=== PATIENT | female | born 1980 | race Caucasian/White ===

== ENCOUNTER 2016-10-22 16:11 | Emergency (ER) | payer MEDICAID ==
[~2016-10-22] VITALS: Wt 80.0 kg
[2016-10-22 19:00] LABS: ADD UMIC YES; URINE BILIRUBIN (Dip) NEGATIVE (NEGATIVE); URINE BLOOD (Dip) 3+ (NEGATIVE); URINE COLOR LT. YELLOW (YELLOW); URINE GLUCOSE (Dip) NEGATIVE (NEGATIVE); URINE KETONES (Dip) NEGATIVE (NEGATIVE); URINE LEUKOCYTE ESTERASE (Dip) NEGATIVE (NEGATIVE); URINE NITRITE (Dip) NEGATIVE (NEGATIVE); URINE TOTAL PROTEIN (Dip) NEGATIVE (NEGATIVE); URINE UROBILINOGEN (Dip) 0.2 E.U./dL (0.1-1.0)
--- NOTE | 2016-10-22 19:03 | ERD ---
ER Documentation Chief Complaint Date/Time DATE: 10/22/16 TIME: 18:59 Chief Complaint VAG BLEED SINCE TODAY. NO FEVERS. ,MILD AP . NO DYSURIA HPI Patient is a 35-year-old female, approximately 9 weeks , G2, P1, who presents to the emergency department with vaginal bleeding. Patient states that the bleeding started approximately 1 PM today. Patient states that the bleeding was dark red in color. The bleeding has now resolved. Patient denies any pad use. Patient also complaining of left lower quadrant pain and suprapubic pain. She denies any excessive vaginal discharge or pain with urination. She does admit to urinary frequency. Patient denies any fever, chills, vomiting, chest pain or shortness breath, diarrhea, dizziness or loss consciousness. Patient does feel nauseous occasionally. No sick contacts. No recent travel. Patient is taking vitamins. ROS All systems reviewed and are negative except as per history of present illness. Allergies Allergies: Coded Allergies: No Known Allergy (Unverified , 10/22/16) PMhx/Soc Medical and Surgical Hx: pt denies Medical Hx, pt denies Surgical Hx History of Surgery: No Anesthesia Reaction: No Hx Neurological Disorder: No Hx Respiratory Disorders: No Hx Cardiac Disorders: No Hx Psychiatric Problems: No Hx Miscellaneous Medical Probl: No Hx Alcohol Use: No Hx Substance Use: No Hx Tobacco Use: No FmHx Family History: No diabetes Physical Exam Vitals Vital Signs Date Time Temp Pulse Resp B/P Pulse Ox O2 Delivery O2 Flow Rate FiO2 10/22/16 21:12 98.7 72 18 110/58 100 Room Air 10/22/16 16:22 98.9 92 21 118/54 98 Physical Exam GENERAL: Well-developed, well-nourished female. Appears in no acute distress. HEAD: Normocephalic, atraumatic. EYES: Pupils are equally reactive bilaterally. EOMs grossly intact. No conjunctival erythema. ENT: Moist mucous membranes. No uvula deviation. No kissing tonsils. NECK: Supple. No meningismus. LUNG: Clear to auscultation bilaterally. No rhonchi, wheezing, rales or coarse breath sounds. HEART: Regular rate and rhythm. No murmurs, rubs or gallops. ABDOMEN: No scars, ecchymosis or rashes noted. Soft and nondistended. Tender to palpation in the suprapubic region. Positive bowel sounds in all four quadrants. No rebound tenderness, no guarding. (-) McBurneys point tenderness. No CVA tenderness. EXTREMITIES: Equal pulses bilaterally. No peripheral clubbing, cyanosis or edema. No unilateral leg swelling. NEUROLOGIC: Alert and oriented. Moving all four extremities without any difficulty. Normal speech. Steady gait. SKIN: Normal color. Warm and dry. No rashes or lesions. Result Diagram: 10/22/161908 Results 24 hrs Laboratory Tests Test 10/22/16 18:39 10/22/16 19:09 Urine Bacteria FEW Urine Bilirubin NEGATIVE Urine Clarity CLEAR Urine Color LT. YELLOW Urine Epithelial Cells FEW Urine Glucose NEGATIVE% Urine Hemoglobin 3+ Urine Ketones NEGATIVE Urine Leukocyte Esterase NEGATIVE Urine Microscopic RBC 5-10/HPF Urine Microscopic WBC 0-2/HPF Urine Nitrite NEGATIVE Urine Specific [place] >=1.030 Urine Total Protein NEGATIVE Urine Urobilinogen 0.2 E.U./dL Urine Yeast FEW Urine pH 5.5 Basophils # 0.010^3/ul Basophils % 0.5% Beta HCG, Quantitative 9375.9mIU/ml Blood Morphology Comment Eosinophils # 0.210^3/ul Eosinophils % 2.3% Hematocrit 37.2% Hemoglobin 12.4g/dl Lymphocytes # 2.810^3/ul Lymphocytes % 34.7% Mean Corpuscular Hemoglobin 26.9pg Mean Corpuscular Hemoglobin Concent 33.3g/dl Mean Corpuscular Volume 80.8fl Mean Platelet Volume 8.3fl Monocytes # 0.410^3/ul Monocytes % 5.2% Neutrophils # 4.610^3/ul Neutrophils % 57.3% Nucleated Red Blood Cells # 0.010^3/ul Nucleated Red Blood Cells % 0.0/100WBC Platelet Count 48932^3/UL Red Blood Count 4.6110^6/ul Red Cell Distribution Width 14.0% White Blood Count 8.010^3/ul Procedures/MDM ED COURSE: The patient was stable throughout ED course. I kept the patient and/or family informed of laboratory and diagnostic imaging results throughout the ED course. DIAGNOSTIC IMAGING: Read by radiologist. DIAGNOSTIC IMAGING REPORT Patient: RISSA DELEON : 1980 Age: 35 Sex: F MR #: [id number] DOS: 10/22/16 1847 Ordering MD: MASON AZEVEDO PA-C Location: [facility] Room/Bed: PROCEDURE: US OB. CLINICAL INDICATION: Vaginal bleeding TECHNIQUE: Transabdominal and transvaginal views of the pelvis are available for review. COMPARISON: No prior studies are available for comparison. FINDINGS: [place]-rump length: 0.3 cm The mean gestational sac diameter is 1.4 cm. heart rate: None Ultrasound estimated gestational age: 6 weeks and 1 day The uterus measures 7.5 x 4.6 x 6.6 cm in size. The left ovary measures 3.5 x 1.8 x 1.9 cm in size. A left ovarian cystic structure is seen measuring 2.2 cm in maximal diameter is seen. The right ovary is not visualized. No other ovarian or adnexal mass lesion is seen. There is no free fluid in the pelvis. A trace amount of free fluid in the endocervical canal seen. IMPRESSION: Single intrauterine without evidence of heart rate, the findings of which are consistent with demise. Correlation with serial beta HCG levels is suggested as well as a short interval follow-up. RPTAT: HPNM Physician Karrie Date Time Electronically viewed and signed by Physician Karrie on 10/22/2016 20 :16 / CC: MASON AZEVEDO PA-C PROCEDURES: None. MEDICAL DECISION MAKING: This is a 35-year-old female who presents to the emergency department with vaginal bleeding earlier today which has now resolved. Vital signs were reviewed. Patient was afebrile. Patient was hemodynamically stable. Quantitative b-HCG was 9375.9. Patient was O positive. Rhogam was not given. CBC showed no evidence of systemic infection or severe anemia. Urine was negative for acute infection. Pelvic US showed single intrauterine without evidence of heart rate, the findings of which are consistent with demise. Correlation with serial beta HCG levels is suggested as well as a short interval follow-up. Given these findings, the patients presentation is most consistent with demise. Patient will likely have a spontaneous or she will need a D & C. I have a much lower clinical concern for ectopic , ruptured ectopic , molar , subchorionic hematoma, placental abruption, anembyronic . DISCHARGE: At this time, patient is stable for discharge and outpatient management. I had a conversation at length with the patient about the concerns of vaginal bleeding during the 1st trimester of . At this time, patient's ultrasound findings are most consistent with demise. Patient will most likely have spontaneous . She was advised that she may need to have a D& C. I have instructed the patient to follow-up with her OBGYN or return here to the ED for further monitoring. I have instructed the patient to promptly return to the ER at any time for any new or worsening symptoms including increased pain, nausea, vomiting, continued bleeding, weakness, syncope or fever. The patient and/or family expressed understanding of and agreement with this plan. All questions were answered. Home care instructions were provided. Departure Diagnosis: Primary Impression: demise Additional Impression: Vaginal bleeding in patient at less than 20 weeks gestation Condition: Stable Patient Instructions: Bleeding During Early Referrals: [facility] YOU HAVE RECEIVED A MEDICAL SCREENING EXAM AND THE RESULTS INDICATE THAT YOU DO NOT HAVE A CONDITION THAT REQUIRES URGENT TREATMENT IN THE EMERGENCY DEPARTMENT. FURTHER EVALUATION AND TREATMENT OF YOUR CONDITION CAN WAIT UNTIL YOU ARE SEEN IN YOUR DOCTORS OFFICE WITHIN THE NEXT 1-2 DAYS. IT IS YOUR RESPONSIBILITY TO MAKE AN APPOINTMENT FOR FOLOW-UP CARE. IF YOU HAVE A PRIMARY DOCTOR --you should call your primary doctor and schedule an appointment IF YOU DO NOT HAVE A PRIMARY DOCTOR YOU CAN CALL OUR PHYSICIAN REFERRAL HOTLINE AT IF YOU CAN NOT AFFORD TO SEE A PHYSICIAN YOU CAN CHOSE FROM THE FOLLOWING [facility] [address] [facility] [address] [facility] [facility] [address] [facility] [address] [facility] [address] [facility] [facility]. [facility]. [address] [facility]. [facility] YOU HAVE RECEIVED A MEDICAL SCREENING EXAM AND THE RESULTS INDICATE THAT YOU DO NOT HAVE A CONDITION THAT REQUIRES URGENT TREATMENT IN THE EMERGENCY DEPARTMENT. FURTHER EVALUATION AND TREATMENT OF YOUR CONDITION CAN WAIT UNTIL YOU ARE SEEN IN YOUR DOCTORS OFFICE WITHIN THE NEXT 1-2 DAYS. IT IS YOUR RESPONSIBILITY TO MAKE AN APPOINTMENT FOR FOLOW-UP CARE. IF YOU HAVE A PRIMARY DOCTOR --you should call your primary doctor and schedule and appointment IF YOU DO NOT HAVE A PRIMARY DOCTOR YOU CAN CALL OUR PHYSICIAN REFERRAL HOTLINE AT . IF YOU CAN NOT AFFORD TO SEE A PHYSICIAN YOU CAN CHOSE FROM THE FOLLOWING [facility], [facility]: [facility] [address] [place] [address] [facility] [address] [place] [address] [facility] [address] [place] [address] [employer] [place] [address] [facility] [address] [place] [address] OFFICE FAX , [facility] [address] [place], [place] [id number] [facility] [address] [place] [address] ORIN [address] [address] [facility], [address], [facility] [address] [address] [place] [address] [facility] [address] [place] [address] [facility] [address] - [address], [facility] [address] [facility] [address], [place] [address] [address], [address] [address] [place] [address] Additional Instructions: Llame al doctor MAANA y vern shaista EVITA PARA DENTRO DE 1-2 MONIQUE.Dgale a la secretaria que nosotros le instruimos hacer esta evita.Avise o llame si shell condicin se empeora antes de la evita. Regresa aqui si peor o no mejor. Necesita recheck en dos monique para ultrasound y B-HCG. MASON AZEVEDO PA-C Oct 22, 2016 19:03 MASON AZEVEDO PA-C Oct 22, 2016 19:03
[2016-10-22 19:20] LABS: BASOPHILS % 0.5 % (0.0-2.0); EOSINOPHILS # 0.2 10^3/ul (0.0-0.5); EOSINOPHILS % 2.3 % (0.0-7.0); HEMATOCRIT 37.2 % (37.0-47.0); HEMOGLOBIN 12.4 g/dl (12.0-16.0); LYMPHOCYTES # 2.8 10^3/ul (0.8-2.9); LYMPHOCYTES % 34.7 % (15.0-51.0); MEAN CORPUSCULAR HEMOGLOBIN 26.9 pg (29.0-33.0); MEAN CORPUSCULAR HGB CONC 33.3 g/dl (32.0-37.0); MEAN CORPUSCULAR VOLUME 80.8 fl (82.0-101.0); MEAN PLATELET VOLUME 8.3 fl (7.4-10.4); MONOCYTE # 0.4 10^3/ul (0.3-0.9); MONOCYTES % 5.2 % (0.0-11.0); NEUTROPHIL # 4.6 10^3/ul (1.6-7.5); NEUTROPHILS % 57.3 % (39.0-77.0); PLATELET COUNT 300 10^3/UL (140-440); RED BLOOD COUNT 4.61 10^6/ul (4.20-5.40)
[2016-10-22 19:22] LABS: CONDITION 1; LH ANALYZER COMMENTS 1
[2016-10-22 19:25] LABS: BACTERIA,URINE FEW
--- NOTE | 2016-10-22 20:17 | RADRPT ---
PROCEDURE: US OB. CLINICAL INDICATION: Vaginal bleeding TECHNIQUE: Transabdominal and transvaginal views of the pelvis are available for review. COMPARISON: No prior studies are available for comparison. FINDINGS: [place]-rump length:0.3 cm The mean gestational sac diameter is 1.4 cm. heart rate:None Ultrasound estimated gestational age:6 weeks and 1 day The uterus measures 7.5 x 4.6 x 6.6 cm in size. The left ovary measures 3.5 x 1.8 x 1.9 cm in size. A left ovarian cystic structure is seen measuring 2.2 cm in maximal diameter is seen. The right o vary is not visualized. No other ovarian or adnexal mass lesion is seen. There is no free fluid in the pelvis. A trace amou nt of free fluid in the endocervical canal seen. IMPRESSION: Single intrauterine without evidence of heart rate, the findings of which are consis tent with demise. Correlation with serial beta HCG levels is suggested as well as a short int erval follow-up. RPTAT: HPNM Physician Karrie Date Time Electronically viewed and signed by Physician Karrei on 10/22/2016 20:16 /
[2016-10-22 21:12] VITALS: BP 110/58; PULSE 72; RESP 18; TEMP 98.7
== END 2016-10-22 21:12 | disposition home or self-care (01) ==
LOC: FTE 16:11
DX: O02.1 Missed abortion (principal)
CPT/HCPCS: 36415; 76801; 76817; 81001; 81003; 84702; 85025; 86900; 86901

== ENCOUNTER 2016-10-26 10:47 | Inpatient (IN) | payer MEDICAID ==
[~2016-10-26] VITALS: Wt 75.0 kg
[2016-10-26] VITALS (7 sets, daily range): BP systolic 96–108; BP diastolic 54–62; PULSE 70–86; RESP 16–23; TEMP 98.3
[2016-10-26] MEDS ORDERED: HYDROCODONE/APAP (5/325) TAB PO STA (12:58)
[2016-10-26 13:20] LABS: ADD SCAN DIFF NO
[2016-10-26 13:22] LABS: BASOPHILS % 0.4 % (0.0-2.0); EOSINOPHILS # 0.2 10^3/ul (0.0-0.5); EOSINOPHILS % 2.1 % (0.0-7.0); HEMATOCRIT 38.8 % (37.0-47.0); HEMOGLOBIN 12.7 g/dl (12.0-16.0); LYMPHOCYTES # 2.4 10^3/ul (0.8-2.9); LYMPHOCYTES % 26.2 % (15.0-51.0); MEAN CORPUSCULAR HEMOGLOBIN 26.7 pg (29.0-33.0); MEAN CORPUSCULAR HGB CONC 32.7 g/dl (32.0-37.0); MEAN CORPUSCULAR VOLUME 81.7 fl (82.0-101.0); MEAN PLATELET VOLUME 9.6 fl (7.4-10.4); MONOCYTE # 0.6 10^3/ul (0.3-0.9); MONOCYTES % 6.5 % (0.0-11.0); NEUTROPHIL # 5.9 10^3/ul (1.6-7.5); NEUTROPHILS % 64.6 % (39.0-77.0); PLATELET COUNT 335 10^3/UL (140-415); RED BLOOD COUNT 4.75 10^6/ul (4.20-5.40); RED CELL DISTRIBUTION WIDTH 13.6 % (11.5-14.5); WHITE BLOOD COUNT 9.1 10^3/ul (4.8-10.8)
[2016-10-26 13:51] LABS: ADD UMIC YES; URINE BILIRUBIN (Dip) NEGATIVE (NEGATIVE); URINE BLOOD (Dip) 3+ (NEGATIVE); URINE COLOR LT. RED (YELLOW); URINE GLUCOSE (Dip) NEGATIVE (NEGATIVE); URINE KETONES (Dip) NEGATIVE (NEGATIVE); URINE LEUKOCYTE ESTERASE (Dip) 1+ (NEGATIVE); URINE NITRITE (Dip) NEGATIVE (NEGATIVE); URINE TOTAL PROTEIN (Dip) 1+ (NEGATIVE); URINE UROBILINOGEN (Dip) 0.2 E.U./dL (0.1-1.0)
--- NOTE | 2016-10-26 13:52 | ERD ---
ER Documentation Chief Complaint Date/Time DATE: 10/26/16 TIME: 13:48 Chief Complaint PELVIC PAIN AND MISCARRIAGE HPI This is a female who presents to the emergency department today for continued pelvic pain and vaginal bleeding. Patient was seen here on October 22 for vaginal bleeding and . Patient states that she saw her primary care doctor and is set up for a D&C on for very 2016 however she was told to just come here to the emergency department if she still had pain and we would do a D&C here. States she is taking Motrin with limited improvement in pain. Denies any fevers or chills, dysuria. ROS All systems reviewed and are negative except as per history of present illness. Allergies Allergies: Coded Allergies: No Known Allergy (Unverified , 10/22/16) PMhx/Soc Medical and Surgical Hx: pt denies Medical Hx History of Surgery: Yes () Anesthesia Reaction: No Hx Neurological Disorder: No Hx Respiratory Disorders: No Hx Cardiac Disorders: No Hx Psychiatric Problems: No Hx Miscellaneous Medical Probl: No Hx Alcohol Use: No Hx Substance Use: No Hx Tobacco Use: No Smoking Status: Never smoker Physical Exam Vitals Vital Signs Date Time Temp Pulse Resp B/P Pulse Ox O2 Delivery O2 Flow Rate FiO2 10/26/16 10:50 98.0 100 18 119/61 99 Physical Exam Const: No acute distress Head: Atraumatic Eyes: Normal Conjunctiva ENT: Normal External Ears, Nose and Mouth. Neck: Full range of motion..~ No meningismus. Resp: Clear to auscultation bilaterally Cardio: Regular rate and rhythm, no murmurs Abd: Soft, suprapubic tenderness non distended. Normal bowel sounds no right lower quadrant pain. No left lower quadrant pain. Skin: No petechiae or rashes Back: No midline or flank tenderness Ext: No cyanosis, or edema Neur: Awake and alert Psych: Normal Mood and Affect Result Diagram: 10/26/16 1315 Results 24 hrs Laboratory Tests Test 10/26/16 13:15 10/26/16 13:21 Basophils # 0.010^3/ul Basophils % 0.4% Beta HCG, Quantitative 6801.0mIU/ml Eosinophils # 0.210^3/ul Eosinophils % 2.1% Hematocrit 38.8% Hemoglobin 12.7g/dl Lymphocytes # 2.410^3/ul Lymphocytes % 26.2% Mean Corpuscular Hemoglobin 26.7pg Mean Corpuscular Hemoglobin Concent 32.7g/dl Mean Corpuscular Volume 81.7fl Mean Platelet Volume 9.6fl Monocytes # 0.610^3/ul Monocytes % 6.5% Neutrophils # 5.910^3/ul Neutrophils % 64.6% Nucleated Red Blood Cells # 0.010^3/ul Nucleated Red Blood Cells % 0.0/100WBC Platelet Count 45569^3/UL Red Blood Count 4.7510^6/ul Red Cell Distribution Width 13.6% White Blood Count 9.110^3/ul Urine Bacteria OCCASIONAL Urine Bilirubin NEGATIVE Urine Clarity SLIGHTLY CLOUDY Urine Color LT. RED Urine Epithelial Cells FEW Urine Glucose NEGATIVE% Urine Hemoglobin 3+ Urine Ketones NEGATIVE Urine Leukocyte Esterase 1+ Urine Microscopic RBC >200/HPF Urine Microscopic WBC 2-5/HPF Urine Nitrite NEGATIVE Urine Specific [place] 1.010 Urine Total Protein 1+ Urine Urobilinogen 0.2 E.U./dL Urine pH 6.5 Current Medications Medications (Trade) Dose Ordered Sig/Pato Route PRN Reason Start Time Stop Time Status Last Admin Dose Admin Acetaminophen/ Hydrocodone Bitart ([place] (5/325)) 1 tab ONCE STAT PO 10/26/16 12:58 10/26/16 12:59 DC 10/26/16 13:20 Ondansetron HCl (Zofran Inj) 4 mg BRIDGE ORDER PRN IV NAUSEA AND/OR VOMITING 10/26/16 15:00 10/27/16 14:59 Acetaminophen (Tylenol Tab) 650 mg ER BRIDGE PRN PO MILD PAIN/FEVER 10/26/16 15:00 10/27/16 14:59 DIAGNOSTIC IMAGING REPORT Patient: RISSA DELEON : 1980 Age: 35 Sex: F MR #: [id number] DOS: 10/26/16 1258 Ordering MD: RORY STRICKLAND PA-C Location: [facility] Room/Bed: PROCEDURE: US OB. CLINICAL INDICATION: Vaginal bleeding. female. TECHNIQUE: Transabdominal and transvaginal views of the pelvis are available for review. COMPARISON: Pelvic sonogram 10/22/2016. FINDINGS: The uterus measures 7.8 cm sagittal by 5 cm AP by 6.1 cm transverse. There is a fluid collection measuring 1.7 x 0.8 x 1 cm in size which is slightly elliptical in shape and may represent a gestational sac for a blighted ovum. No definite pole is identified. Some fluid is present in the cervical canal and cul-de-sac. The left left ovary as normal blood flow and Doppler imaging measuring 2.5 x 2.2 x 1.6 cm. The right ovary is not identified or evaluated. [place]-rump length: No pole is identified. heart rate: No cardiac activity is documented. No abnormal adnexal mass is identified. IMPRESSION: 1. demise/blighted ovum. 2. When no IUP is demonstrated, correlation with serial beta HCG is recommended. With a quantitative beta HCG >2000, the differential diagnosis includes spontaneous or ectopic . Therefore, clinical follow-up is recommended including correlation with serial quantitative beta HCG levels and repeat sonogram with rising levels and/or/or localized or persistent pain. With quantitative beta HCG < 2000, the differential diagnosis includes early normal IVP or spontaneous or ectopic . Therefore, clinical follow-up is recommended including correlation with serial quantitative beta HCG levels and arising levels and / or persistent pain. RPTAT:AAJJ Physician Jennifer Date Time Electronically viewed and signed by Stephen Kaye Physician on 10/26/2016 14:15 PINO/ CC: RORY STRICKLAND PA-C [facility] This 35-year-old female who presents to the emergency department today complaining of continued vaginal bleeding and pelvic pain. She was seen here on October 22 and had a full OB workup at that time. She was approximately 9 weeks . Her ultrasound at that time showed a single intrauterine without evidence of heart rate and findings consistent with demise. Patient had a beta quant of 9375.9 at that time. Her Rh status was O+. She did follow-up at her clinic and has been scheduled for an appointment for a D&C on for 2016. She also had an ultrasound 2 days ago but was unable to tell me what was on the ultrasound. Patient was impression that if she came here to emergency department for continued pain she was told that she would have a D&C here in the emergency department. Patient did have continued vaginal bleeding and pelvic pain today and therefore I did repeat laboratory work as well as ultrasound. Laboratory work shows no elevated white blood cell count. She is not anemic. Platelets are within normal limits. UA shows 1+ leukocyte esterase Beta quant hCG 6801.0 Ultrasound shows demise and a blighted ovum. There is no IUP. There is no definite pole identified. There is no cardiac activity. There are no abnormal adnexal masses. She was given [place] here in the emergency department or her pain. I placed a call to the labor and on-call doctor Anahi , who has seen and evaluated the patient and will take her to the OR for a D&C. Saline lock was placed and consent for D&C was ordered. Patient is hemodynamically stable. I have discussed the patient with Dr. Rodriguez and he will place any admission orders. Departure Diagnosis: Primary Impression: demise Condition: RORY Ceja PA-C Oct 26, 2016 13:52
[2016-10-26 14:13] LABS: BACTERIA,URINE OCCASIONAL; URINE RBCS >200 /HPF (0)
--- NOTE | 2016-10-26 14:15 | RADRPT ---
PROCEDURE: US OB. CLINICAL INDICATION: Vaginal bleeding. female. TECHNIQUE: Transabdominal and transvaginal views of the pelvis are available for review. COMPARISON: Pelvic sonogram 10/22/2016. FINDINGS: The uterus measures 7.8 cm sagittal by 5 cm AP by 6.1 cm transverse. There is a fluid collection me asuring 1.7 x 0.8 x 1 cm in size which is slightly elliptical in shape and may represent a gestation al sac for a blighted ovum. No definite pole is identified. Some fluid is present in the cerv ical canal and cul-de-sac. The left left ovary as normal blood flow and Doppler imaging measuring 2.5 x 2.2 x 1.6 cm. The right ovary is not identified or evaluated. [place]-rump length:No pole is identified. heart rate:No cardiac activity is documented. No abnormal adnexal mass is identified. IMPRESSION: 1. demise/blighted ovum. 2. When no IUP is demonstrated, correlation with serial beta HCG is recommended. With a quantitative beta HCG >2000, the differential diagnosis includes spontaneous or ecto pic . Therefore, clinical follow-up is recommended including correlation with serial quant itative beta HCG levels and repeat sonogram with rising levels and/or/or localized or persistent bucky n. With quantitative beta HCG < 2000, the differential diagnosis includes early normal IVP or spontaneo us or ectopic . Therefore, clinical follow-up is recommended including correlatio n with serial quantitative beta HCG levels and arising levels and / or persistent pain. RPTAT:AAJJ Physician Jennifer Date Time Electronically viewed and signed by Physician Jennifer on 10/26/2016 14:15 PINO/
[2016-10-26] MEDS ORDERED: ACETAMINOPHEN 325 MG TAB PO PRN (15:00)
[2016-10-26] MEDS ORDERED: ONDANSETRON 4 MG INJ IV PRN ×2 (15:00→20:00)
[2016-10-26] MEDS ORDERED: IBUPROFEN 600 MG TAB PO PRN (19:30)
[2016-10-26] MEDS ORDERED: LIDOCAINE 2% (SDV) 5 ML INJ ONE (19:47)
[2016-10-26] MEDS ORDERED: MEPERIDINE 100 MG INJ ONE (19:47)
[2016-10-26] MEDS ORDERED: PROPOFOL 20 ML ONE (19:47)
[2016-10-26] MEDS ORDERED: FENTAnyl 50 MCG/ML VIAL IV PRN ×2 (20:00)
[2016-10-26] MEDS ORDERED: MIDAZOLAM 1 MG/ML 2 ML INJ IV PRN (20:00)
[2016-10-26] MEDS ORDERED: METOCLOPRAMIDE 10 MG INJ IV PRN (20:00)
[2016-10-26] MEDS ORDERED: morphine (1 MG/ML) 10ML SYRINGE IV PRN ×2 (20:00)
[2016-10-26] MEDS ORDERED: DIPHENHYDRAMINE 50 MG INJ IV PRN (20:00)
[2016-10-26] MEDS ORDERED: MEPERIDINE 25 MG INJ IV PRN (20:00)
[2016-10-26] MEDS ORDERED: ONDANSETRON 4 MG INJ ONE (20:14)
[2016-10-26] MEDS ORDERED: METOCLOPRAMIDE 10 MG INJ ONE (20:14)
[2016-10-26] MEDS ORDERED: CEFAZOLIN 1 GM INJ ONE (20:14)
[2016-10-26] MEDS ORDERED: DOCUSATE SODIUM 100 MG CAP PO SCH (21:00)
--- NOTE | 2016-10-27 11:43 | OPR ---
DATE OF OPERATION: 10/26/2016 PREOPERATIVE DIAGNOSIS: Incomplete at 5 to 6 weeks. POSTOPERATIVE DIAGNOSIS: Incomplete at 5 to 6 weeks. OPERATION PERFORMED: Dilation and curettage and suction. ATTENDING SURGEON: Dr. Christian ANESTHESIOLOGIST: Dr. Ramon MD ANESTHESIA: General. COMPLICATIONS: None. ESTIMATED BLOOD LOSS: Less than 20 mL. TECHNIQUE: The patient was taken to the operating room where general anesthesia was found to be julianne quate. The patient was placed in dorsal lithotomy position. After prep and drape, a weighted specu lum was placed inside the vaginal vault. Anterior lip of the cervix was grasped by single-tooth ten aculum. Cervix was 1 to 2 cm open, and suction size 7 was inserted. Intrauterine cavity was suctio anam. Sharp curettage of endometrial cavity was done. Hemostasis achieved. Instruments removed. T he patient tolerated the procedure well and was transferred to recovery room in stable condition. T here was no complication regarding this surgery. Dictated By: KAREN ROTH/RICK Conf#: [id number] DID#: [id number]
--- NOTE | 2016-10-27 11:51 | HP ---
DATE OF ADMISSION: 10/26/2016 HISTORY OF PRESENT ILLNESS: The patient is 35-year-old at 5 to 6 weeks' gestational age with vagina l bleeding. Patient admitted through the emergency room. The patient has cramps and vaginal bleedi ng and cervix is 1 to 2 cm open. PAST MEDICAL HISTORY: Denies. PAST SURGICAL HISTORY: . ALLERGIES: NKDA. PHYSICAL EXAMINATION: VITAL SIGNS: Stable. GENERAL: Normal. ABDOMEN: Not tender, not distended. GENITAL: There are 5 to 10 mL clots in the vaginal vault. Cervix is 1 to 2 cm open. ASSESSMENT AND PLAN: A 35-year-old at 5 to 6 weeks' gestational age with diagnosis of incomplete ab ortion. Patient was consented for dilation and curettage and suction. Alternatives discussed. Ris ks and benefits of the procedure and alternatives discussed. The patient signed the consent and was taken to the operating room. Dictated By: KAREN ROTH/RICK Conf#: [id number] DID#: [id number]
== END 2016-10-26 22:30 | disposition home or self-care (01) | DRG 770 ==
LOC: FTE 10:47 → MS1 14:41
PROVIDERS: ADMIT Obstetrics & Gynecology; ATTEND Obstetrics & Gynecology
PROC: 10D17ZZ Extraction of Products of Conception, Retained, Via Natural or Artificial Opening (ICD-10-PCS; principal; 2016-10-26 16:00)
DX: O03.4 Incomplete spontaneous abortion without complication (principal); E66.9 Obesity, unspecified
CPT/HCPCS: 36415; 76801; 76817; 81001; 81003; 84702; 85025; 88305; J0690; J2175; J2270; J2405; J2765

== ENCOUNTER 2017-08-19 16:18 | Inpatient (IN) | payer MEDICAID ==
[~2017-08-19] VITALS: Ht 157.5 cm; Wt 85.5 kg
--- NOTE | 2017-08-19 18:01 | ERD ---
ER Documentation Chief Complaint Chief Complaint LOW BACK PAIN X2 DAYS HPI This 36 YO female presents to ED for evaluation of RUQ pain with vomiting, and right upper back pain, pt reports left pelvic pain w/o dysuria, denies hx of GB disease, pt reports that she is in pain,and nauseated, pt stated she has not eaten since the morning, toleration water, denies diarrhea ROS All systems reviewed and are negative except as per history of present illness. Medications Home Meds No Active Prescriptions or Reported Meds Allergies Allergies: Coded Allergies: No Known Allergy (Unverified , 08/19/17) PMhx/Soc History of Surgery: Yes () Anesthesia Reaction: No Hx Neurological Disorder: No Hx Respiratory Disorders: No Hx Cardiac Disorders: No Hx Psychiatric Problems: No Hx Miscellaneous Medical Probl: No Hx Alcohol Use: No Hx Substance Use: No Hx Tobacco Use: No Smoking Status: Never smoker Physical Exam Vitals Vital Signs Date Time Temp Pulse Resp B/P Pulse Ox O2 Delivery O2 Flow Rate FiO2 08/19/17 21:45 97.7 83 18 90/57 98 Room Air 08/19/17 16:27 97.7 95 18 119/72 98 VSS triage notes reviewed and noted to be different than what pt reports to me Physical Exam Const: Well-nourished, well-hydrated, 36-year-old female obvious discomfort no acute distress Eyes: Normal Conjunctiva, no jaundice ENT: Normal External Ears, Nose and Mouth mucous membranes moist Resp: Respirations even and unlabored, no respiratory distress clear to auscultation bilaterally no rales wheezes or rhonchi Cardio: Regular rate and rhythm, no murmurs Abd: Soft, distended, right upper quadrant tenderness, left groin tenderness , no CVA tenderness Skin: No petechiae or rashes Back: No midline or flank tenderness Ext: No cyanosis, or edema Neur: Awake and alert Psych: Normal Mood and Affect Result Diagram: 08/19/17184608/19/171846 Results 24 hrs Laboratory Tests Test 08/19/17 18:11 08/19/17 18:47 Urine Color LORENA Urine Clarity CLOUDY Urine pH 5.0 Urine Specific [place] 1.033 Urine Ketones NEGATIVEmg/dL Urine Nitrite NEGATIVEmg/dL Urine Bilirubin NEGATIVEmg/dL Urine Urobilinogen 1+mg/dL Urine Leukocyte Esterase NEGATIVELeu/ul Urine Microscopic RBC 6/HPF Urine Microscopic WBC 1/HPF Urine Squamous Epithelial Cells FEW/HPF Urine Bacteria FEW/HPF Urine Mucus MANY/HPF Urine Hemoglobin 1+mg/dL Urine Glucose NEGATIVEmg/dL Urine Total Protein 1+mg/dl White Blood Count 13.810^3/ul Red Blood Count 5.3110^6/ul Hemoglobin 14.0g/dl Hematocrit 42.2% Mean Corpuscular Volume 79.5fl Mean Corpuscular Hemoglobin 26.4pg Mean Corpuscular Hemoglobin Concent 33.2g/dl Red Cell Distribution Width 13.7% Platelet Count 34705^3/UL Mean Platelet Volume 9.7fl Neutrophils % 77.8% Lymphocytes % 17.7% Monocytes % 3.5% Eosinophils % 0.5% Basophils % 0.2% Nucleated Red Blood Cells % 0.0/100WBC Neutrophils # 10.810^3/ul Lymphocytes # 2.410^3/ul Monocytes # 0.510^3/ul Eosinophils # 0.110^3/ul Basophils # 0.010^3/ul Nucleated Red Blood Cells # 0.010^3/ul Sodium Level 140mmol/L Potassium Level 4.1mmol/L Chloride Level 102mmol/L Carbon Dioxide Level 27mmol/L Anion Gap 15 Blood Urea Nitrogen 11mg/dl Creatinine 0.72mg/dl Glucose Level 130mg/dl Calcium Level 10.0mg/dl Total Bilirubin 0.3mg/dl Direct Bilirubin 0.00mg/dl Indirect Bilirubin 0.3mg/dl Aspartate Amino Transf (AST/SGOT) 73IU/L Alanine Aminotransferase (ALT/SGPT) 66IU/L Alkaline Phosphatase 116IU/L Total Protein 8.4g/dl Albumin 4.6g/dl Globulin 3.80g/dl Albumin/Globulin Ratio 1.21 Lipase 04644B/L Current Medications Medications (Trade) Dose Ordered Sig/Pato Route PRN Reason Start Time Stop Time Status Last Admin Dose Admin Sodium Chloride (NS) 1,000 ml @ 1,000 mls/hr Q1H STAT IV 08/19/17 18:02 08/19/17 19:01 DC 08/19/17 18:22 Ondansetron HCl (Zofran Inj) 4 mg ONCE STAT IV 08/19/17 18:02 08/19/17 18:05 DC 08/19/17 18:22 Famotidine (Pepcid Iv) 20 mg ONCE STAT IV 08/19/17 18:02 08/19/17 18:05 DC 08/19/17 18:22 Ketorolac Tromethamine 30 mg 30 mg ONCE STAT IV 08/19/17 18:02 08/19/17 18:05 DC 08/19/17 18:23 Sodium Chloride (NS) 1,000 ml @ 1,000 mls/hr Q1H ONCE IV 08/19/17 21:30 08/19/17 22:29 DC 08/19/17 21:33 Morphine Sulfate (morphine) 4 mg ONCE STAT IV 08/19/17 21:11 08/19/17 21:13 DC 08/19/17 21:26 Ondansetron HCl (Zofran Inj) 4 mg ONCE STAT IV 08/19/17 21:11 08/19/17 21:13 DC 08/19/17 21:26 Interpretation text CBC shows elevated WBCs suggestive of infection, evidence of hemorrhage Chemistry shows no evidence of significant electrolyte abnormalities or renal insufficiency Liver function tests abnormal probable acute biliary or hepatic dysfunction Lipase shows evidence of acute pancreatitis Procedures/MDM PROCEDURE: CT Abdomen and Pelvis without contrast. CLINICAL INDICATION: Abdominal pain, low back pain for 2 days. TECHNIQUE: A CT scan of the abdomen and pelvis was performed without intravenous contrast. Coronal and sagittal reformatted images were generated. DICOM images are available. Images were reviewed on a high-resolution PACS workstation. CTDIvol: 15.08 mGy. DLP: 923.52 mGy-cm. One or more of the following dose reduction techniques were used: - Automated exposure control. - Adjustment of the mA and/or kV according to patient size. - Use of iterative reconstruction technique. COMPARISON: None. FINDINGS: There is a calcified granuloma in the left lower lobe. Evaluation of the abdominal and pelvic viscera is limited by the lack of oral and intravenous contrast. The liver is unremarkable. The gallbladder is normal in appearance. The common bile duct is not dilated. The spleen is not enlarged. There is mild fat stranding adjacent to the pancreas tail, possibly representing pancreatitis. No pancreatic ductal dilatation or peripancreatic pseudocyst is identified. The adrenal glands are unremarkable. The kidneys are normal in size. There is no perinephric fat stranding. No hydronephrosis is seen. No urinary stone is identified. The small and large bowel are normal in caliber. There is no bowel wall thickening. The appendix is normal. The urinary bladder is unremarkable. The pelvic organs are within normal limits. No lymphadenopathy is identified. There is no ascites. No pneumoperitoneum is seen. There are no arterial calcifications. No suspicious osseous lesion is idenitified. IMPRESSION: 1. Mild fat stranding adjacent to the pancreas tail, possibly representing pancreatitis. Correlation with serum amylase and lipase levels is recommended. 2. No obstructive uropathy or urinary stone. 3. Normal appendix. This pleasant Turkish-speaking 36-year-old female presents to emergency department for evaluation of right upper quadrant pain radiating to her back, patient reports vomiting, denies diarrhea or fever, patient also reports left pelvic pain and dysuria. Emergency room course includes history and physical exam, please sign is negative, no McBurney's point tenderness. No CVA tenderness patient undergoes full examination with analysis negative for evidence of infection, CAT scan positive for mild fat stranding adjacent to the pancreas tail possibly representing pancreatitis, correlation with serum amylase and lipase levels is recommended. No obstructive uropathy or urinary stone. Normal appendix. Serology positive for elevated lipase 30770E/L, and abnormal AST, and WBC, and these are consistent with pancreatitis, patient receives 2 L of normal saline while in emergency department, intravenous Pepcid , Zofran, Toradol, and morphine. This case discussed with supervising physician Dr. Ramsey, patient will be moved to [place] emergency room for admission and further diagnostic testing with MRCP tomorrow. I spent 10 minutes with moss gatherer talking to family about diagnostic findings and plan, admission. Family verbalizes understanding and agrees with plan of care. Patient moves from ER to to Main ER, all care turned over to Dr. Ramsey at this time Departure Diagnosis: Primary Impression: Pancreatitis Chronicity: acute Pancreatitis type: unspecified pancreatitis type Acute pancreatitis complication: unspecified Qualified Code: K85.90 - Acute pancreatitis, unspecified complication status, unspecified pancreatitis type Condition: MINGO Miranda Aug 19, 2017 18:01
[2017-08-19] MEDS ORDERED: KETOROLAC 30 MG INJ IV STA (18:02)
[2017-08-19] MEDS ORDERED: SOD CHLORIDE 0.9% 1,000 ML IV STA (18:02)
[2017-08-19] MEDS ORDERED: FAMOTIDINE 20 MG INJ IV STA (18:02)
[2017-08-19] MEDS ORDERED: ONDANSETRON 4 MG INJ IV STA ×2 (18:02→21:11)
[2017-08-19 19:14] LABS: BASOPHILS % 0.2 % (0.0-2.0); EOSINOPHILS # 0.1 10^3/ul (0.0-0.5); EOSINOPHILS % 0.5 % (0.0-7.0); HEMATOCRIT 42.2 % (37.0-47.0); LYMPHOCYTES # 2.4 10^3/ul (0.8-2.9); LYMPHOCYTES % 17.7 % (15.0-51.0); MEAN CORPUSCULAR HEMOGLOBIN 26.4 pg (29.0-33.0); MEAN CORPUSCULAR HGB CONC 33.2 g/dl (32.0-37.0); MEAN CORPUSCULAR VOLUME 79.5 fl (82.0-101.0); MEAN PLATELET VOLUME 9.7 fl (7.4-10.4); MONOCYTE # 0.5 10^3/ul (0.3-0.9); MONOCYTES % 3.5 % (0.0-11.0); NEUTROPHIL # 10.8 10^3/ul (1.6-7.5); NEUTROPHILS % 77.8 % (39.0-77.0); PLATELET COUNT 347 10^3/UL (140-415); RED BLOOD COUNT 5.31 10^6/ul (4.20-5.40); RED CELL DISTRIBUTION WIDTH 13.7 % (11.5-14.5); WHITE BLOOD COUNT 13.8 10^3/ul (4.8-10.8)
[2017-08-19 19:23] LABS: ADD UMIC YES; UR ASCORBIC ACID NEGATIVE (NEGATIVE); UR BACTERIA FEW /HPF (NONE SEEN); UR BILIRUBIN (Dip) NEGATIVE (NEGATIVE); UR BLOOD (Dip) 1+ mg/dL (NEGATIVE); UR CLARITY CLOUDY (CLEAR); UR COLOR AMBER (YELLOW); UR GLUCOSE (Dip) NEGATIVE (NEGATIVE); UR KETONES (Dip) NEGATIVE (NEGATIVE); UR LEUKOCYTE ESTERASE (Dip) NEGATIVE Leu/ul (NEGATIVE); UR MUCUS MANY /HPF (NONE SEEN); UR NITRITE (Dip) NEGATIVE (NEGATIVE); UR RBC 6 /HPF (0-5); UR SPECIFIC GRAVITY (Dip) 1.033 (1.003-1.030); UR SQUAMOUS EPITHELIAL CELL FEW /HPF (FEW); UR TOTAL PROTEIN (Dip) 1+ mg/dl (NEGATIVE); UR UROBILINOGEN (Dip) 1+ mg/dL (NEGATIVE)
--- NOTE | 2017-08-19 19:29 | RADRPT ---
PROCEDURE: CT Abdomen and Pelvis without contrast. CLINICAL INDICATION: Abdominal pain, low back pain for 2 days. TECHNIQUE: A CT scan of the abdomen and pelvis was performed without intravenous contrast. Zamarripa l and sagittal reformatted images were generated. DICOM images are available. Images were reviewed o n a high-resolution PACS workstation. CTDIvol: 15.08 mGy. DLP: 923.52 mGy-cm. One or more of the following dose reduction techniques were used: - Automated exposure control. - Adjustment of the mA and/or kV according to patient size. - Use of iterative reconstruction technique. COMPARISON: None. FINDINGS: There is a calcified granuloma in the left lower lobe. Evaluation of the abdominal and pelvic viscera is limited by the lack of oral and intravenous contra st. The liver is unremarkable. The gallbladder is normal in appearance. The common bile duct is not dila sirisha. The spleen is not enlarged. There is mild fat stranding adjacent to the pancreas tail, possibly representing pancreatitis. No pancreatic ductal dilatation or peripancreatic pseudocyst is identifi ed. The adrenal glands are unremarkable. The kidneys are normal in size. There is no perinephric fat stranding. No hydronephrosis is seen. No urinary stone is identified. The small and large bowel are normal in caliber. There is no bowel wall thickening. The appendix is normal. The urinary bladder is unremarkable. The pelvic organs are within normal limits. No lymphadenopathy is identified. There is no ascites. No pneumoperitoneum is seen. There are no art erial calcifications. No suspicious osseous lesion is idenitified. IMPRESSION: 1. Mild fat stranding adjacent to the pancreas tail, possibly representing pancreatitis. Correlatio n with serum amylase and lipase levels is recommended. 2. No obstructive uropathy or urinary stone. 3. Normal appendix. RPTAT: HTAR .Gt Wade MD, MD Date Time Electronically viewed and signed by .Gt Wade MD, MD on 08/19/2017 19:29 .R/
[2017-08-19 19:31] LABS: ALBUMIN 4.6 g/dl (3.3-4.9); ALBUMIN/GLOBULIN RATIO 1.21; BILIRUBIN,INDIRECT 0.3 mg/dl (0-1.1); BILIRUBIN,TOTAL 0.3 mg/dl (0.2-1.3); CREATININE 0.72 mg/dl (0.44-1.00); POTASSIUM 4.1 mmol/L (3.5-5.1); TOTAL PROTEIN 8.4 g/dl (6.1-8.1)
[2017-08-19] MEDS ORDERED: morphine 4 MG/ML VIAL IV STA (21:11)
[2017-08-19] MEDS ORDERED: SOD CHLORIDE 0.9% 1,000 ML IV ONE (21:30)
[2017-08-19 21:45] VITALS: PULSE 83; TEMP 97.7
--- NOTE | 2017-08-19 21:50 | QN ---
Documentation Comment I have seen and evaluated the patient along with the PA and/or TIMBER SETTER provider. I agree with the evaluation and plan of care. Please see their documentation for full ER course and evaluation. In short: She presents with abdominal pain and back pain On exam: Benign abdominal exam without rebound or guarding Assessment and plan: Laboratory testing and CT imaging show evidence of pancreatitis. Strong suspicion for likely choledocholithiasis the laboratory testing does not support hepatobiliary obstruction. No evidence of ascending cholangitis. Low concern for malignancy. Patient does not drink alcohol. MRCP indicated as an inpatient. Patient's pain is well-controlled with IV fluids and pain control medications. Accepting care team and consultations: I discussed the current laboratory data, diagnostic imaging and emergency care provided. Admitting team: Dr. Ambrosio Admitting team indication: Insurance directed MERLIN KRISHNA MD Aug 19, 2017 21:50
[2017-08-19] MEDS ORDERED: ONDANSETRON 4 MG INJ IV PRN (22:00)
[2017-08-19] MEDS ORDERED: ACETAMINOPHEN 325 MG TAB PO PRN (22:00)
[2017-08-19 23:00] VITALS: Ht 157.5 cm; Wt 85.5 kg
[2017-08-20] MEDS ORDERED: ONDANSETRON 4 MG INJ IV PRN
[2017-08-20] MEDS ORDERED: HYDROmorphONE 1 MG/ML SYG IV PRN
[2017-08-20] MEDS ORDERED: NACL 0.9% 3 ML SYG IV SCH
[2017-08-20] MEDS: DEXTROSE 5%-0.45% NACL 1,000 ML IV SCH ×2 (01:38→12:03)
[2017-08-20 06:46] LABS: BASOPHILS % 0.4 % (0.0-2.0); EOSINOPHILS # 0.2 10^3/ul (0.0-0.5); EOSINOPHILS % 2.1 % (0.0-7.0); HEMATOCRIT 37.9 % (37.0-47.0); HEMOGLOBIN 12.4 g/dl (12.0-16.0); LYMPHOCYTES % 37.3 % (15.0-51.0); MEAN CORPUSCULAR HEMOGLOBIN 26.4 pg (29.0-33.0); MEAN CORPUSCULAR HGB CONC 32.7 g/dl (32.0-37.0); MEAN CORPUSCULAR VOLUME 80.8 fl (82.0-101.0); MEAN PLATELET VOLUME 9.7 fl (7.4-10.4); MONOCYTE # 0.6 10^3/ul (0.3-0.9); NEUTROPHIL # 4.3 10^3/ul (1.6-7.5); PLATELET COUNT 280 10^3/UL (140-415); RED BLOOD COUNT 4.69 10^6/ul (4.20-5.40); RED CELL DISTRIBUTION WIDTH 13.8 % (11.5-14.5); WHITE BLOOD COUNT 8.1 10^3/ul (4.8-10.8)
[2017-08-20 07:05] LABS: ALBUMIN 3.1 g/dl (3.3-4.9); ALBUMIN/GLOBULIN RATIO 0.88; BILIRUBIN,INDIRECT 0.5 mg/dl (0-1.1); BILIRUBIN,TOTAL 0.5 mg/dl (0.2-1.3); CALCIUM 8.7 mg/dl (8.4-10.2); CREATININE 0.69 mg/dl (0.44-1.00); PHOSPHORUS 3.2 mg/dl (2.5-4.9); POTASSIUM 3.8 mmol/L (3.5-5.1); TOTAL PROTEIN 6.6 g/dl (6.1-8.1)
[2017-08-20 08:17] VITALS: BP 100/55; RESP 18
--- NOTE | 2017-08-20 09:31 | PN ---
Date/Time of Note Date/Time of Note DATE: 08/20/17 TIME: 09:25 Assessment/Plan VTE Prophylaxis VTE Prophylaxis Intervention: ambulation, SCD's Lines/Catheters IV Catheter Type (from Nrsg): Peripheral IV Assessment/Plan Chief Complaint/Hosp Course Assessment and plan 1. Acute pancreatitis. Patient had a lipase level sized 21,275. Continue n.p.o. diet and IV hydration. Analgesics as needed. MRCP is pending at this time. Will follow. 2. Leukocytosis. Downward trended at this time. Likely reactive. Will follow. Disposition plan: Follow-up an MRCP. Monitor for clinical improvement. Will advance diet once pain subsides. Discussed plan of care with Dr. Silva Problems: Subjective 24 Hr Interval Summary Free Text/Dictation still reports having some abd pain Exam/Review of Systems Vital Signs Vitals Vital Signs Date Time Temp Pulse Resp B/P Pulse Ox O2 Delivery O2 Flow Rate FiO2 08/20/17 08:17 98.0 67 18 100/55 100 08/19/17 21:45 Room Air Intake and Output 08/19/17 08/19/17 08/20/17 15:00 23:00 07:00 Intake Total 350 ml Balance 350 ml Exam Constitutional: alert, oriented Psych: nl mood/affect Head: normocephalic Eyes: nl conjunctiva Neck: non-tender, supple Respiratory: clear to auscultation, normal air movement Cardiovascular: regular rate and rhythm Gastrointestinal: soft, tender Musculoskeletal: nl extremities to inspection, nl gait and stance Extremities: normal pulses Neurological: TAR POT WORKER II-XII intact, nl mental status, nl speech Skin: nl turgor Results Result Diagram: 08/20/1714 08/20/17 0614 Results 24 hrs Laboratory Tests Test 08/19/17 18:11 08/19/17 18:47 08/19/17 21:51 08/20/17 06:14 Urine Color LORENA Urine Clarity CLOUDY A Urine pH 5.0 Urine Specific [place] 1.033 H Urine Ketones NEGATIVE Urine Nitrite NEGATIVE Urine Bilirubin NEGATIVE Urine Urobilinogen 1+ H Urine Leukocyte Esterase NEGATIVE Urine Microscopic RBC 6 H Urine Microscopic WBC 1 Urine Squamous Epithelial Cells FEW Urine Bacteria FEW A Urine Mucus MANY A Urine Hemoglobin 1+ H Urine Glucose NEGATIVE Urine Total Protein 1+ H White Blood Count 13.8 #H 8.1 # Red Blood Count 5.31 4.69 Hemoglobin 14.0 12.4 Hematocrit 42.2 37.9 Mean Corpuscular Volume 79.5 L 80.8 L Mean Corpuscular Hemoglobin 26.4 L 26.4 L Mean Corpuscular Hemoglobin Concent 33.2 32.7 Red Cell Distribution Width 13.7 13.8 Platelet Count 347 280 Mean Platelet Volume 9.7 9.7 Neutrophils % 77.8 H 53.0 Lymphocytes % 17.7 37.3 Monocytes % 3.5 7.0 Eosinophils % 0.5 2.1 Basophils % 0.2 0.4 Nucleated Red Blood Cells % 0.0 0.0 Neutrophils # 10.8 H 4.3 Lymphocytes # 2.4 3.0 H Monocytes # 0.5 0.6 Eosinophils # 0.1 0.2 Basophils # 0.0 0.0 Nucleated Red Blood Cells # 0.0 0.0 Sodium Level 140 140 Potassium Level 4.1 3.8 Chloride Level 102 108 Carbon Dioxide Level 27 25 Anion Gap 15 11 Blood Urea Nitrogen 11 10 Creatinine 0.72 0.69 Glucose Level 130 97 Calcium Level 10.0 8.7 Total Bilirubin 0.3 0.5 Direct Bilirubin 0.00 0.00 Indirect Bilirubin 0.3 0.5 Aspartate Amino Transf (AST/SGOT) 73 H 31 Alanine Aminotransferase (ALT/SGPT) 66 50 Alkaline Phosphatase 116 83 Total Protein 8.4 H 6.6 # Albumin 4.6 3.1 #L Globulin 3.80 H 3.50 H Albumin/Globulin Ratio 1.21 0.88 Lipase 53836 H Ethyl Alcohol Level < 10.0 Phosphorus Level 3.2 Medications Medications Current Medications Ondansetron HCl (Zofran Inj) 4 mg Q6H PRN IV NAUSEA AND/OR VOMITING; Start 08/20/17 at 00:00 Morphine Sulfate 3 mg 3 mg Q4H PRN IV PAIN; Start 08/20/17 at 00:00 Dextrose/Sodium Chloride (D5-1/2ns) 1,000 ml @ 100 mls/hr Q10H IV Last administered on 08/20/17t 01:38; Admin Dose 100 MLS/HR; Start 08/20/17 at 00:00 Famotidine (Pepcid Iv) 20 mg Q12 IV ; Start 08/20/17 at 09:00 Hydromorphone HCl (Dilaudid) 1 mg Q4H PRN IV pain; Start 08/20/17 at 00:00 CLEVE OROZCO Aug 20, 2017 09:30
[2017-08-20] MEDS: FAMOTIDINE 20 MG INJ IV SCH ×2 (09:43→20:02)
[2017-08-20 09:59] LABS: CHOL/HDL RATIO 5.7 RATIO
--- NOTE | 2017-08-20 10:20 | HP ---
Date/Time of Note Date/Time of Note DATE: 08/20/17 TIME: 10:17 Assessment/Plan Lines/Catheters IV Catheter Type (from Nrsg): Peripheral IV Assessment/Plan Assessment/Plan 1. Acute pancreatitis, unknown etiology -Keep n.p.o. with IV fluid - Pain management -will check triglyceride level -will order MRCP 2. SIRS, as evidenced by leukocytosis and tachycardia, secondary to above -Continue treatment of pancreatitis -Infectious workup as needed HPI/ROS Admit Date/Time Admit Date/Time Aug 19, 2017 at 21:48 Hx of Present Illness This is a 36-year-old female with no significant past medical history presented to the ER complaining of abdominal pain. Pain is mainly localized in the right side of her abdomen with radiation to lower back. Reported associated nausea. Denied history of alcohol abuse. When she presented to the ER, she was found to have severely elevated lipase of about 21,000. CT abdomen/pelvis with a finding of possible pancreatitis. ROS Psychological: nl mood/affect PMH/Family/Social Social History Smoking Status: Never smoker Exam/Review of Systems Vital Signs Vitals Vital Signs Date Time Temp Pulse Resp B/P Pulse Ox O2 Delivery O2 Flow Rate FiO2 08/20/17 08:17 98.0 67 18 100/55 100 08/19/17 21:45 Room Air Intake and Output 08/19/17 08/19/17 08/20/17 15:00 23:00 07:00 Intake Total 350 ml Balance 350 ml Exam Constitutional: alert, oriented, well developed Head: atraumatic, normocephalic Eyes: EOMI, PERRL Respiratory: clear to auscultation, normal air movement Cardiovascular: regular rate and rhythm Gastrointestinal: soft, tender Extremities: normal pulses Labs Result Diagram: 08/20/1761308/20/17613 Medications Medications Current Medications Ondansetron HCl (Zofran Inj) 4 mg Q6H PRN IV NAUSEA AND/OR VOMITING; Start 08/20/17 at 00:00 Morphine Sulfate 3 mg 3 mg Q4H PRN IV PAIN; Start 08/20/17 at 00:00 Dextrose/Sodium Chloride (D5-1/2ns) 1,000 ml @ 100 mls/hr Q10H IV Last administered on 08/20/17t 01:38; Admin Dose 100 MLS/HR; Start 08/20/17 at 00:00 Famotidine (Pepcid Iv) 20 mg Q12 IV Last administered on 08/20/17t 09:43; Admin Dose 20 MG; Start 08/20/17 at 09:00 Hydromorphone HCl (Dilaudid) 1 mg Q4H PRN IV pain; Start 08/20/17 at 00:00 ROCIO MELARA MD Aug 20, 2017 10:20
[2017-08-20 14:06] VITALS: BP 109/60; RESP 18
[2017-08-20] MEDS: morphine 4 MG/ML VIAL IV PRN (20:02)
[2017-08-20 20:08] VITALS: BP 108/64; RESP 16
[2017-08-21] MEDS: DEXTROSE 5%-0.45% NACL 1,000 ML IV SCH ×4 (00:41→16:00)
[2017-08-21 02:33] VITALS: BP 101/59; RESP 16
--- NOTE | 2017-08-21 03:48 | RADRPT ---
PROCEDURE: MRCP. CLINICAL INDICATION: Pancreatitis suspect common bile duct obstruction, abdominal pain TECHNIQUE: MRCP was performed on the a high-resolution, high Anastasiya field strength scanner. Patien t was examined without contrast. 3-D coronal rotating MIP images of the biliary tree are available for review. COMPARISON: CT abdomen and pelvis without contrast of 08/19/2017 FINDINGS: The length of the liver equals 20.9 cm which appears to likely be secondary to a Luh lobe, normal variant. There is diffuse gallbladder wall edema. There is the suggestion of very small gallstones in the gallbladder. The biliary tree is not dilated. No intrahepatic nor extrahepatic biliary dilat ation is present. No definite filling defect or choledocholithiasis is seen. There is no stricture o r obstruction seen in the extrahepatic bile. The pancreatic duct, as visualized, is unremarkable. Tr penny pleural fluid is apparent bilaterally. There is also appearance of small amount of peripancreati c inflammatory fluid adjacent to the tail of the pancreas and the spleen in this patient with a hist ory of pancreatitis. Minimal subcutaneous edema posteriorly and suggestive of minimal edema in bilat eral posterior lateral upper abdominal wall. IMPRESSION: Nonspecific diffuse gallbladder wall edema. Suggestion of very small gallstones in the gallbladder. No biliary dilatation, extrahepatic bile duct stricture or definite choledocholithiasis seen. Trace pleural fluid is apparent bilaterally. There is also appearance of small amount of peripancreatic in flammatory fluid adjacent to the tail of the pancreas and the spleen in this patient with a history of pancreatitis. Please see above. RPTAT: HJES .Aureliano Levi MD, Date Time Electronically viewed and signed by .Aureliano Levi MD, on 08/21/2017 03:48 .S/
[2017-08-21] MEDS: morphine 4 MG/ML VIAL IV PRN (05:46)
[2017-08-21 07:36] VITALS: BP 91/51; RESP 18
[2017-08-21] MEDS: FAMOTIDINE 20 MG INJ IV SCH (08:29)
--- NOTE | 2017-08-21 09:32 | PDOCDIS ---
Discharge Instructions DIAGNOSIS Discharge Diagnosis 1. Acute pancreatitis 2. Hypertriglyceridemia 3. Obesity HOME CARE INSTRUCTIONS: Diet Instructions: Low Fat /CholesterolSpecial Diet: NPO FOLLOW UP/APPOINTMENTS Follow-up Plan 1. Follow-up with your primary care provider within a week CLEVE OROZCO Aug 21, 2017 09:32
== END 2017-08-21 18:24 | disposition home or self-care (01) | DRG 439 ==
LOC: FTE 16:18 → PP2 21:48
PROVIDERS: ADMIT Internal Medicine; ATTEND Internal Medicine
DX: K85.90 Acute pancreatitis without necrosis or infection, unspecified (principal); R65.10 Systemic inflammatory response syndrome (SIRS) of non-infectious origin without acute organ dysfunction; E66.9 Obesity, unspecified; Z68.34 Body mass index [BMI] 34.0-34.9, adult; E78.1 Pure hyperglyceridemia
CPT/HCPCS: 36415; 74176; 74181; 80053; 80061; 80306; 81001; 82150; 83690; 84100; 85025; 96374; 96375; 96376; J1885; J2270; J2405; J7030; J7042

== ENCOUNTER 2018-05-13 10:41 | Inpatient (IN) | END 2018-05-16 16:00 | disposition home or self-care (01) | DRG 444 ==